=== PATIENT | female | born 1985 | race Hispanic/Latino ===

== ENCOUNTER 2019-07-20 05:56 | Day surgery (SDC) | payer BC ==
[2019-07-18 11:56] LABS: BASOPHILS % (AUTO) 0.3 % (0.0-5.0); EOSINOPHILS % (AUTO) 0.9 % (0.0-8.0); HEMATOCRIT 41.8 % (36-48); LYMPHOCYTES % (AUTO) 40.8 % (21.0-51.0); MEAN CORPUSCULAR HEMOGLOBIN 30.4 pg (27.0-33.0); MEAN CORPUSCULAR HGB CONC 34.3 g/dL (32.0-36.0); MEAN CORPUSCULAR VOLUME 88.6 fL (79-99); MONOCYTES % (AUTO) 7.6 % (3.0-13.0); NEUTROPHILS % (AUTO) 50.4 % (40.0-77.0); PLATELET COUNT (AUTO) 292 K/uL (130-400); RED BLOOD CELL COUNT(AUTO) 4.71 MIL/uL (4.00-5.50); RED CELL DISTRIBUTION WIDTH 13.5 % (11.0-15.5); WHITE BLOOD COUNT (AUTO) 6.1 K/uL (4.8-10.8)
[2019-07-18 12:01] VITALS: BP 118/71
[~2019-07-20] VITALS: Ht 160 cm; Wt 89.9 kg
[2019-07-20] VITALS (12 sets, daily range): BP systolic 104–112; BP diastolic 54–66
[~2019-07-20 05:56] MED LIST: CALDOLOR 800MG+NS 250ML 250 ML IV SCH; CLAR500T PO
[2019-07-20] MEDS ORDERED: LACTATED RINGERS 1000ML 1,000 ML IV ONE (06:17)
[2019-07-20] MEDS: CEFAZOLIN SODIUM 1 GM VIAL IVP SCH ×2 (06:50→07:14)
[2019-07-20] MEDS ORDERED: LIDOCAINE PF 2% 5ML ABBOJECT ONE (07:01)
[2019-07-20] MEDS ORDERED: PROPOFOL 10 MG/ML 20ML VIAL IV ONE (07:01)
[2019-07-20] MEDS ORDERED: MIDAZOLAM HCL 1 MG/ML 2ML VIAL ONE (07:01)
[2019-07-20] MEDS ORDERED: ROCURONIUM 10MG/1ML SYR 10 MG/ML ML ONE (07:01)
[2019-07-20] MEDS ORDERED: FENTANYL CITRATE PF 50 MCG/1 ML 2ML VIAL ONE (07:02)
[2019-07-20] MEDS ORDERED: OCTYL 2-CYANOACRYLATE 1 EACH TP ONE (07:11)
[2019-07-20] MEDS ORDERED: BUPIVACAINE/PF 0.5% 10ML VIAL ONE (07:11)
[2019-07-20] MEDS ORDERED: GLYCOPYRROLATE 1 MG/5 ML SYRINGE ONE (07:26)
[2019-07-20] MEDS ORDERED: ONDANSETRON HCL 4 MG/2 ML VIAL ONE (07:26)
[2019-07-20] MEDS ORDERED: NEOSTIGMINE 5MG/5ML SYR IV ONE (07:26)
[2019-07-20] MEDS ORDERED: DEXAMETHASONE SOD PHOSPHATE 10MG/ML 1ML VIAL ONE (07:26)
--- NOTE | 2019-07-20 09:03 | NUR ---
post received pt from [facility], s/p lap btl incision x 2 to umbilical and suprapubic area with dermabond open to air, site asymptomatic, vs stable on arrival pt awake and alert, no distress noted. denied any pain or discomforts
--- NOTE | 2019-07-20 09:25 | NUR ---
dc dc instructions given to pt's friend , instructed to f/u with dr. green, patient states received prescription pain meds prior to sx at office. patient / friend verbalized understanding on all dc instructions given
--- NOTE | 2019-07-20 09:30 | NUR ---
dc pt dc home via [facility],no distress noted. denies any pain or discomforts. accompanied by her friend
== END 2019-07-20 09:30 | disposition home or self-care (01) ==
LOC: DAH 05:56
PROVIDERS: ATTEND Obstetrics & Gynecology
DX: Z30.2 Encounter for sterilization (principal); N81.10 Cystocele, unspecified; Z79.2 Long term (current) use of antibiotics; Z82.49 Family history of ischemic heart disease and other diseases of the circulatory system; Z72.89 Other problems related to lifestyle
CPT/HCPCS: 36415; 58670; 84703; 85025; 86850; 86900; 86901; A4215; A4221; A4222; A4223; A4351; A4663; A6260; C1769; J0690; J1100; J1741; J2001; J2250; J2405; J2704; J2710; J3010; J3490 ×2; J7030; J7120